=== PATIENT | female | born 1990 | race Caucasian/White ===

== ENCOUNTER 2018-01-29 22:02 | Emergency (ER) | payer OTHER ==
[2018-01-29] MEDS ORDERED: IBUPROFEN 600 MG TAB PO STA (22:20)
[2018-01-29] MEDS ORDERED: ACETAMINOPHEN TAB 325 MG TAB PO STA (22:20)
--- NOTE | 2018-01-29 22:23 | ED ---
Female Urogenital HPI - General Chief complaint: Urogenital Stated complaint: Blood in Urine Time Seen by Provider: 01/29/18 22:11 Source: patient Mode of arrival: ambulatory Limitations: no limitations - History of Present Illness Initial comments: 27-year-old female patient presents to the emergency department today for evaluation of dysuria and hematuria. Patient states that she has had symptoms for the last 2 days. Patient states that today the amount of blood in the urine increased. She denies any fevers or chills. Denies any back pain or abdominal pain. Denies any nausea or vomiting. States that she does take control denies any chance of . Patient denies any recent rash, shortness breath, chest pain, diarrhea, constipation, numbness, tingling, dizziness, weakness, headache, visual changes, or any other complaints. - Related Data Home Medications Medication Instructions Recorded Confirmed Cetirizine HCl [Zyrtec] 10 mg PO DAILY 07/08/17 01/29/18 Norgestimate-Ethinyl Estradiol 1 tab PO DAILY 07/08/17 01/29/18 [Ortho Tri-Cyclen 28 Tablet] buPROPion HCL [Wellbutrin XL] 300 mg PO DAILY 07/08/17 01/29/18 Omeprazole 40 mg PO DAILY 12/18/17 01/29/18 Phentermine HCl [Adipex-P] 37.5 mg PO QAM 12/18/17 01/29/18 Previous Rx's Medication Instructions Recorded Cephalexin [Keflex] 500 mg PO Q6HR #28 cap 01/29/18 Allergies Allergy/AdvReac Type Severity Reaction Status Date / Time Sulfa (Sulfonamide AdvReac Nausea & Verified 01/29/18 22:27 Antibiotics) Vomiting Review of Systems ROS Statement: Those systems with pertinent positive or pertinent negative responses have been documented in the HPI. ROS Other: All systems not noted in ROS Statement are negative. Past Medical History Past Medical History: Asthma Additional Past Medical History / Comment(s): pancreatitis History of Any Multi-Drug Resistant Organisms: None Reported Past Surgical History: Adenoidectomy, Tonsillectomy Past Psychological History: Anxiety Smoking Status: Never smoker Past Alcohol Use History: Occasional Past Drug Use History: None Reported General Exam Limitations: no limitations General appearance: alert, in no apparent distress, other (This is a well- developed, well-nourished adult female patient in no acute distress. Vital signs upon presentation are temperature 99.7F, pulse 117, respirations 20, blood pressure 138/87, pulse ox 100% on room air.) Eye exam: Present: normal appearance, PERRL, EOMI. Absent: scleral icterus, conjunctival injection, periorbital swelling ENT exam: Present: normal exam, normal oropharynx, mucous membranes moist Respiratory exam: Present: normal lung sounds bilaterally. Absent: respiratory distress, wheezes, rales, rhonchi, stridor Cardiovascular Exam: Present: regular rate, normal rhythm, normal heart sounds. Absent: systolic murmur, diastolic murmur, rubs, gallop, clicks GI/Abdominal exam: Present: soft, normal bowel sounds. Absent: distended, tenderness, guarding, rebound, rigid Back exam: Present: normal inspection. Absent: CVA tenderness (R), CVA tenderness (L) Neurological exam: Present: alert, oriented X3, CN II-XII intact Psychiatric exam: Present: normal affect, normal mood Skin exam: Present: warm, dry, intact, normal color. Absent: rash Course Vital Signs 01/29/18 22:03 Temperature 99.7 F H Pulse Rate 117 H Respiratory 20 Rate Blood Pressure 138/87 O2 Sat by Pulse 100 Oximetry Medical Decision Making - Medical Decision Making 27-year-old female patient presents to the emergency department today for evaluation of dysuria and hematuria 3 days. Physical examination is relatively unremarkable. Patient has no CVA tenderness. She does have slight suprapubic tenderness. Patient does have temperature 99.7 and elevated heart rate. Urinalysis was obtained and shows a cloudy appearance with 1+ protein, large amount of blood, large leukocyte esterase, 84 red blood cells, and 10 white blood cells. Few mucus. HCG is negative. Patient will be treated for hemorrhagic cystitis. We'll give her perception for Keflex. She is instructed to follow-up with her primary care physician for repeat testing once antibiotic to complete [place] clearance of infection. She is instructed to increase fluids. Return parameters discussed in detail. She verbalizes understanding and agrees with this plan. - Lab Data Lab Results 01/29/18 01/29/18 Range/Units 22:30 22:30 Urine Color Yellow Urine Appearance Cloudy H (Clear) Urine pH 7.0 (5.0-8.0) Ur Specific [place] 1.028 (1.001-1.035) Urine Protein 1+ H (Negative) Urine Glucose (UA) Negative (Negative) Urine Ketones Negative (Negative) Urine Blood Large H (Negative) Urine Nitrite Negative (Negative) Urine Bilirubin Negative (Negative) Urine Urobilinogen 2.0 (<2.0) mg/dL Ur Leukocyte Esterase Large H (Negative) Urine RBC 84 H (0-5) /hpf Urine WBC 10 H (0-5) /hpf Ur Squamous Epith Cells 4 (0-4) /hpf Urine Mucus Few H (None) /hpf Urine HCG, Qual Not Detected (Not Detectd) Disposition Clinical Impression: Hemorrhagic cystitis Disposition: HOME SELF-CARE Condition: Good Instructions: Urinary Tract Infection in Women (ED) Additional Instructions: Take medications as directed. Follow up with her primary care physician for recheck in 1-2 days. Return here immediately for any new, worsening, or concerning symptoms. Prescriptions: Cephalexin [Keflex] 500 mg PO Q6HR #28 cap Is patient prescribed a controlled substance at d/c from ED?: No Referrals: Emiliana Winters MD [Primary Care Provider] - 1-2 days Time of Disposition: 23:05
[2018-01-29 22:50] LABS: Appearance,Urine Cloudy (Clear); Bilirubin,Urine Negative (Negative); Blood,Urine Large (Negative); Color,Urine Yellow; Glucose,Urine (UA) Negative (Negative); Ketones,Urine Negative (Negative); Leukocyte Esterase,Urine Large (Negative); Mucus,Urine Few /hpf; Nitrite,Urine Negative (Negative); Protein,Urine 1+ (Negative); RBC,Urine 84 /hpf (0-5); Specific Gravity,Urine 1.028 (1.001-1.035); Squamous Epithelial Cell,Urine 4 /hpf (0-4); WBC,Urine 10 /hpf (0-5)
[2018-01-29] MEDS ORDERED: CEPHALEXIN 500MG STARTER PACK 4 CAP BTL PO STA ×2 (23:08→23:29)
[2018-01-29 23:36] VITALS: BP 133/80; PULSE 97; RESP 16; TEMP 98.8
== END 2018-01-29 23:36 | disposition home or self-care (01) ==
LOC: EC 22:02
DX: N30.90 Cystitis, unspecified without hematuria (principal); F41.9 Anxiety disorder, unspecified; Z79.3 Long term (current) use of hormonal contraceptives; Z79.899 Other long term (current) drug therapy; Z88.2 Allergy status to sulfonamides
CPT/HCPCS: 81001; 81025; 99283

== ENCOUNTER 2019-05-19 08:57 | Emergency (ER) | payer OTHER ==
[2019-05-19 09:00] VITALS: BP 149/82; PULSE 90; RESP 18; TEMP 98.4
[2019-05-19] MEDS ORDERED: PROPARACAINE 0.5% OPHTH DROPS 15 ML BTL RIGHT EYE STA (09:10)
[2019-05-19] MEDS ORDERED: OFLOXACIN 0.3% OPHTH DROPS 5 ML BOTTLE LEFT EYE STA (09:44)
--- NOTE | 2019-05-19 10:08 | ED ---
Eye Problem HPI - General Chief complaint: Eye Problems Stated complaint: Eye issue Time Seen by Provider: 05/19/19 09:01 Source: patient, RN notes reviewed, old records reviewed Mode of arrival: ambulatory Limitations: no limitations - History of Present Illness Initial comments: Patient is a 28-year-old female presents today with left eye irritation. Patient reports that last night when she is taking her contact out around 10 PM she noticed some injection to the left eye increased pain. Patient states that she wears contacts daily but never sleeps in them. She states that last night she slept, was having pain within her eye was feeling draining. She denies any purulent drainage. She reports that when she arrived to the ER her eye pain is diminishing and is not as injected as it was. Patient states that she does not believe is a foreign body within her eye, but states it is somewhat irritated and painful. Patient states that she has no visual changes. - Related Data Home Medications Medication Instructions Recorded Confirmed Cetirizine HCl [Zyrtec] 10 mg PO DAILY 07/08/17 05/19/19 Norgestimate-Ethinyl Estradiol 1 tab PO DAILY 07/08/17 05/19/19 [Ortho Tri-Cyclen 28 Tablet] buPROPion HCL [Wellbutrin XL] 300 mg PO DAILY 07/08/17 05/19/19 Omeprazole 40 mg PO DAILY 12/18/17 05/19/19 Previous Rx's Medication Instructions Recorded Ofloxacin 0.3% Ophth Soln [Ocuflox 1 - 2 drops LEFT EYE QID #1 bottle 05/19/19 Ophth Soln] Allergies Allergy/AdvReac Type Severity Reaction Status Date / Time Sulfa (Sulfonamide AdvReac Nausea & Verified 05/19/19 09:19 Antibiotics) Vomiting Review of Systems ROS Statement: Those systems with pertinent positive or pertinent negative responses have been documented in the HPI. ROS Other: All systems not noted in ROS Statement are negative. Past Medical History Past Medical History: Asthma Additional Past Medical History / Comment(s): pancreatitis History of Any Multi-Drug Resistant Organisms: None Reported Past Surgical History: Adenoidectomy, Tonsillectomy Past Psychological History: Anxiety Smoking Status: Never smoker Past Alcohol Use History: Occasional Past Drug Use History: None Reported General Exam - General Exam Comments Initial Comments: Pleasant 28-year-old female. No significant distress. Limitations: no limitations General appearance: alert, in no apparent distress Head exam: Present: atraumatic, normocephalic, normal inspection Eye exam: Present: PERRL, conjunctival injection (Left eye conjunctival injection. 4 scene eye exam was performed no signs of ulceration or abrasion. Sure of the left eye was 9 and right eye was 12.) ENT exam: Present: normal exam, mucous membranes moist Neck exam: Present: normal inspection. Absent: tenderness, meningismus, lymphadenopathy Respiratory exam: Present: normal lung sounds bilaterally. Absent: respiratory distress, wheezes, rales, rhonchi, stridor Cardiovascular Exam: Present: regular rate, normal rhythm, normal heart sounds. Absent: systolic murmur, diastolic murmur, rubs, gallop, clicks GI/Abdominal exam: Present: soft, normal bowel sounds. Absent: distended, tenderness, guarding, rebound, rigid Extremities exam: Present: normal inspection, full ROM, normal capillary refill. Absent: tenderness, pedal edema, joint swelling, calf tenderness Back exam: Present: normal inspection Neurological exam: Present: alert, oriented X3, CN II-XII intact Psychiatric exam: Present: normal affect, normal mood Skin exam: Present: warm, dry, intact, normal color. Absent: rash Course Vital Signs 05/19/19 08:58 Temperature 98.4 F Pulse Rate 90 Respiratory 18 Rate Blood Pressure 149/82 O2 Sat by Pulse 100 Oximetry Medical Decision Making - Medical Decision Making At this time patient's the transitional female presents emergency room today with left eye irritation. Sugar contact her yesterday complaining of redness and pain since that time. Patient 4 scene eye exam performed no signs of ulceration or significant abrasion. She states that the eye is less painful since she woke up. Discussed with a history of contact use and conjunctival injection we will treat the Patient for concern for possibility of early infection. I discussed if the redness was worsening or increased pain despite not do medications using Visine drops Patient should return to the ER follow-up with ophthalmology. Discussed discontinuing contacts until her eye is treated. All questions answered return parameters were discussed. Disposition Clinical Impression: Conjunctivitis, left eye Disposition: HOME SELF-CARE Condition: Good Instructions (If sedation given, give patient instructions): Conjunctivitis (ED) Additional Instructions: Please use medication as discussed., Using the eye drop every 4 hours within the eye. Also using Visine drops and did not wear contacts. Please follow up with opthalomology if symptoms have not improved over the next two days. Please return to the emergency room if your symptoms increase or worsen or for any other concerns. Prescriptions: Ofloxacin 0.3% Ophth Soln [Ocuflox Ophth Soln] 1 - 2 drops LEFT EYE QID #1 bottle Is patient prescribed a controlled substance at d/c from ED?: No Referrals: Emiliana Winters MD [Primary Care Provider] - 1-2 days Rajinder Lindsay MD [STAFF PHYSICIAN] - 1-2 days Time of Disposition: 10:06
== END 2019-05-19 10:17 | disposition home or self-care (01) ==
LOC: EC 08:57
DX: H10.9 Unspecified conjunctivitis (principal); F41.9 Anxiety disorder, unspecified; Z79.3 Long term (current) use of hormonal contraceptives; Z79.899 Other long term (current) drug therapy; Z88.2 Allergy status to sulfonamides
CPT/HCPCS: 99283

== ENCOUNTER 2021-08-09 20:17 | Emergency (ER) | payer OTHER ==
--- NOTE | 2021-08-09 22:30 | XR ---
EXAMINATION TYPE: XR chest 2V DATE OF EXAM: 08/09/2021 COMPARISON: 12/18/2017 HISTORY: Chest pain TECHNIQUE: FINDINGS: Heart and mediastinum are normal. Lungs are clear. Diaphragm is normal. Bony thorax appears normal. IMPRESSION: Normal chest. No change.
--- NOTE | 2021-08-10 00:35 | ED ---
General Adult HPI - General Chief complaint: Shortness of Breath Stated complaint: Chills,Exposed to COVID Time Seen by Provider: 08/09/21 22:23 Source: patient, RN notes reviewed Mode of arrival: ambulatory Limitations: no limitations - History of Present Illness Initial comments: Patient is a 30-year-old female presenting to the emergency Department with complaints of tingling over her body that started a couple hours before arrival. Patient also expressed concerns for recent cold exposure and wants to covert tested. Patient states she has been feeling some nasal congestion, took two Mucinex today and then shortly later took some NyQuil. Patient states shortly after that started feeling weird sensations all over her body, felt fatigued. Patient states it's was a weird feeling just came in for evaluation. She has no fevers or chills, no falls or trauma. She denies any chest pains or short of breath, no abdominal pain, nausea or vomiting. Patient has no further complaints. Her vitals are stable upon arrival. - Related Data Home Medications Medication Instructions Recorded Confirmed Cetirizine HCl [Zyrtec] 10 mg PO DAILY 07/08/17 08/09/21 buPROPion HCL [Wellbutrin XL] 300 mg PO DAILY 07/08/17 08/09/21 Norgestimate-Ethinyl Estradiol 1 tab PO DAILY 08/09/21 08/09/21 [Tri-Estarylla Tablet] Omeprazole 20 mg PO BID 08/09/21 08/09/21 Allergies Allergy/AdvReac Type Severity Reaction Status Date / Time Sulfa (Sulfonamide AdvReac Nausea & Verified 08/09/21 23:25 Antibiotics) Vomiting Review of Systems ROS Statement: Those systems with pertinent positive or pertinent negative responses have been documented in the HPI. ROS Other: All systems not noted in ROS Statement are negative. Past Medical History Past Medical History: Asthma Additional Past Medical History / Comment(s): pancreatitis History of Any Multi-Drug Resistant Organisms: None Reported Past Surgical History: Adenoidectomy, Tonsillectomy Past Psychological History: Anxiety Smoking Status: Never smoker Past Alcohol Use History: Occasional Past Drug Use History: None Reported General Exam - General Exam Comments Initial Comments: GENERAL: Patient is well-developed and well-nourished. Patient is nontoxic and in no acute distress. HEAD: Atraumatic, normocephalic. EYES: Pupils equal round and reactive to light, extraocular movements intact, sclera anicteric, conjunctiva are normal. Eyelids were unremarkable. ENT: TMs normal, nares patent, oropharynx clear without exudates. Moist mucous membranes. NECK: Normal range of motion, supple without lymphadenopathy or JVD. LUNGS: Unlabored respirations. Breath sounds clear to auscultation bilaterally and eq ual. No wheezes rales or rhonchi. HEART: Regular rate and rhythm without murmurs, rubs or gallops. ABDOMEN: Soft, nontender, normoactive bowel sounds. No guarding, no rebound. No masses appreciated. MUSCULOSKELETAL: Normal extremities with adequate strength and normal range of motion, no pitting or edema. No clubbing or cyanosis. NEUROLOGICAL: Patient is alert and oriented x 3. SKIN: Warm, Dry, normal turgor, no rashes or lesions noted. Limitations: no limitations Course Vital Signs 08/09/21 21:04 Temperature 98.5 F Pulse Rate 86 Respiratory 22 Rate Blood Pressure 138/88 O2 Sat by Pulse 99 Oximetry EKG Findings - EKG Comments: EKG Findings:: Normal sinus rhythm, normal ECG, no signs of acute ST segment elevation. Ventricular rate 91, WI interval 144, QT 376. Medical Decision Making - Medical Decision Making Patient is a 30-year-old female here with complaints of a weird tingling sensation after taking some medications for nasal congestion. Patient had recent covid exposure. Rapid Covid test is positive today. I did offer monoclonal antibodies, patient refused. Chest x-ray showed no acute abnormality. I discussed with patient that her sensation most likely related to the NyQuil. Patient is stable for discharge. She'll follow up with her primary care. She is agreeable to this plan of care and she is stable for discharge. - Lab Data Lab Results 08/09/21 Range/Units 23:13 Coronavirus (PCR) Detected A (Not Detectd) Disposition Clinical Impression: COVID-19 Disposition: HOME SELF-CARE Condition: Stable Instructions (If sedation given, give patient instructions): Coronavirus Disease 2019 (COVID-19) Additional Instructions: Please return to the Emergency Department if symptoms worsen or any other concerns. Follow-up with your primary care as needed. Is patient prescribed a controlled substance at d/c from ED?: No Referrals: Emiliana Winters MD [Primary Care Provider] - 1-2 days Time of Disposition: 00:34
[2021-08-10] MEDS ORDERED: SOTROVIMAB (EUA) 500 MG in SODIUM CHLORIDE 0.9% 100 ML IVPB ONE (01:15)
[2021-08-10] MEDS ORDERED: SODIUM CHLORIDE 0.9% 50 ML IVPB ONE (01:15)
[2021-08-10 03:48] VITALS: BP 134/91; PULSE 91; RESP 15; TEMP 99.2
== END 2021-08-10 03:43 | disposition home or self-care (01) ==
LOC: EC 20:17
DX: U07.1 COVID-19 (principal); J45.909 Unspecified asthma, uncomplicated; F41.9 Anxiety disorder, unspecified; Z72.89 Other problems related to lifestyle
CPT/HCPCS: 93005; 87635; 71046; 99284; 96360; Q0247; 96361

== ENCOUNTER 2021-08-11 11:36 | Emergency (ER) | payer OTHER ==
[2021-08-11 13:59] VITALS: RESP 16
--- NOTE | 2021-08-11 16:48 | ED ---
Extremity Problem HPI - General Chief complaint: Extremity Problem,Nontraumatic Stated complaint: post infusion, nausea & right side pain Source: patient Mode of arrival: ambulatory Limitations: no limitations - History of Present Illness Initial comments: 30 year-old female patient presents to the emergency department for evaluation of intermittent nausea and right hip pain. States she received the monoclonal antibody infusion two days ago for COVID-19 and started having these symptoms yesterday. States that the nausea has been mild. She is still able to eat and drink. Denies any vomiting. States the pain in her right hip feels "superficial". More uncomfortable when she lays on the hip or tries to change position. She denies any skin color changes. Denies any swelling, numbness, or tingling to the right leg. Denies fever or chills. She was concerned she may have blood clot. - Related Data Home Medications Medication Instructions Recorded Confirmed Cetirizine HCl [Zyrtec] 10 mg PO DAILY 07/08/17 08/09/21 buPROPion HCL [Wellbutrin XL] 300 mg PO DAILY 07/08/17 08/09/21 Norgestimate-Ethinyl Estradiol 1 tab PO DAILY 08/09/21 08/09/21 [Tri-Estarylla Tablet] Omeprazole 20 mg PO BID 08/09/21 08/09/21 Allergies Allergy/AdvReac Type Severity Reaction Status Date / Time Sulfa (Sulfonamide AdvReac Nausea & Verified 08/11/21 13:59 Antibiotics) Vomiting Review of Systems ROS Statement: Those systems with pertinent positive or pertinent negative responses have been documented in the HPI. ROS Other: All systems not noted in ROS Statement are negative. Past Medical History Past Medical History: Asthma Additional Past Medical History / Comment(s): pancreatitis History of Any Multi-Drug Resistant Organisms: None Reported Past Surgical History: Adenoidectomy, Tonsillectomy Past Psychological History: Anxiety Smoking Status: Never smoker Past Alcohol Use History: Occasional Past Drug Use History: None Reported General Exam Limitations: no limitations General appearance: alert, in no apparent distress, other (This is a well- developed, well-nourished adult female in no acute distress) Respiratory exam: Present: normal lung sounds bilaterally. Absent: respiratory distress, wheezes, rales, rhonchi, stridor Cardiovascular Exam: Present: regular rate, normal rhythm, normal heart sounds. Absent: systolic murmur, diastolic murmur, rubs, gallop, clicks GI/Abdominal exam: Present: soft, normal bowel sounds. Absent: distended, tenderness, guarding, rebound, rigid Extremities exam: Present: normal inspection, full ROM, normal capillary refill, other (Skin to the right leg is pink, warm, dry. Cap refill less than 3 seconds. Pedal posttibial pulses 2+.). Absent: tenderness, pedal edema, joint swelling, calf tenderness Neurological exam: Present: alert, oriented X3, CN II-XII intact Psychiatric exam: Present: normal affect, normal mood Skin exam: Present: warm, dry, intact, normal color. Absent: rash Course Vital Signs 08/11/21 13:56 Temperature 98.4 F Pulse Rate 90 Respiratory 16 Rate Blood Pressure 141/92 O2 Sat by Pulse 99 Oximetry Medical Decision Making - Medical Decision Making 30-year-old female patient presents to the emergency department today for evaluation of nausea and right hip pain. Physical examination did reveal soft nontender abdomen. Skin to the right leg is normal. No swelling. Vital signs are within normal range. She was concerned she may have blood clot after receiving monoclonal antibody infusion. Area of pain and physical exam findings do not support this. Did instruct her to apply warm compresses over the area. Continue to monitor the site. If there are any changes she is instructed to return immediately. She is instructed to follow-up with the primary care physician for recheck in 1-2 days. She verbalizes understanding and agrees with this plan. Case discussed with my attending Dr. Vega. Disposition Clinical Impression: Right hip pain, Nausea Disposition: HOME SELF-CARE Condition: Good Instructions (If sedation given, give patient instructions): Acute Nausea and Vomiting (ED), Hip Pain (ED) Additional Instructions: Take Tylenol Motrin for pain control. Follow-up with the primary care physician for recheck in 1-2 days. Return for any new, worsening, or concerning symptoms Is patient prescribed a controlled substance at d/c from ED?: No Referrals: Emiliana Winters MD [Primary Care Provider] - 1-2 days Time of Disposition: 16:48
[2021-08-11 17:16] VITALS: BP 137/95; PULSE 93; TEMP 98.3
== END 2021-08-11 17:16 | disposition home or self-care (01) ==
LOC: EC 11:36
DX: R11.0 Nausea (principal); M25.551 Pain in right hip; J45.909 Unspecified asthma, uncomplicated; F41.9 Anxiety disorder, unspecified; Z88.2 Allergy status to sulfonamides
CPT/HCPCS: 99283

== ENCOUNTER 2021-09-12 15:58 | Emergency (ER) | payer OTHER ==
[2021-09-12 18:26] VITALS: TEMP 98.9
[2021-09-12] MEDS ORDERED: SODIUM CHLORIDE 0.9% 1,000 ML IV ONE (20:45)
--- NOTE | 2021-09-12 21:02 | ED ---
General Adult HPI - General Chief complaint: Recheck/Abnormal Lab/Rx Stated complaint: Strange sensations Time Seen by Provider: 09/12/21 19:58 Source: patient Mode of arrival: ambulatory Limitations: no limitations - History of Present Illness Initial comments: 30-year-old female patient presents to the emergency department today for evaluation of tingling sensation over her body. States she first experienced it when she had COVID in July 2021. States she received monoclonal antibodies abdominal was taking Mucinex, and NyQuil, the symptoms started shortly after. States that it initially started as a "heat wave through her body followed by tingling sensations". States it lasted for 10-20 minutes. States those episodes resolved and she started to get focal areas of tingling over her body at various times. States she did see her primary care physician who said it could have been an infection, did labs, and started her on a multivitamin. She states that more recently she has felt the tingling in her scalp. Last night it started in her head then started to radiate to her whole body. States she was unable to sleep last night due to the symptoms. Patient states she is very anxious about this and is concerned that something is wrong with her. He denies symptoms being assigned to one side of her body. She denies any headaches, blurred vision, double vision, dizziness, or weakness. Denies difficulty with ambulation. Denies starting any new medications. She denies any head injury. Denies any similar symptoms prior to July. - Related Data Home Medications Medication Instructions Recorded Confirmed Cetirizine HCl [Zyrtec] 10 mg PO DAILY 07/08/17 09/12/21 buPROPion HCL [Wellbutrin XL] 300 mg PO DAILY 07/08/17 09/12/21 Norgestimate-Ethinyl Estradiol 1 tab PO DAILY 08/09/21 09/12/21 [Tri-Estarylla Tablet] Omeprazole 20 mg PO BID 08/09/21 09/12/21 Multivitamins, Thera [Multivitamin 1 tab PO DAILY 09/12/21 09/12/21 (formulary)] Allergies Allergy/AdvReac Type Severity Reaction Status Date / Time Sulfa (Sulfonamide AdvReac Nausea & Verified 09/12/21 20:59 Antibiotics) Vomiting Review of Systems ROS Statement: Those systems with pertinent positive or pertinent negative responses have been documented in the HPI. ROS Other: All systems not noted in ROS Statement are negative. Past Medical History Past Medical History: Asthma Additional Past Medical History / Comment(s): pancreatitis History of Any Multi-Drug Resistant Organisms: None Reported Past Surgical History: Adenoidectomy, Tonsillectomy Past Psychological History: Anxiety Smoking Status: Never smoker Past Alcohol Use History: Occasional Past Drug Use History: None Reported General Exam Limitations: no limitations General appearance: alert, in no apparent distress, other (This is a well- developed, well-nourished adult female in no acute distress.) Eye exam: Present: normal appearance, PERRL, EOMI. Absent: scleral icterus, conjunctival injection, periorbital swelling ENT exam: Present: normal exam, normal oropharynx, mucous membranes moist Respiratory exam: Present: normal lung sounds bilaterally. Absent: respiratory distress, wheezes, rales, rhonchi, stridor Cardiovascular Exam: Present: normal rhythm, tachycardia, normal heart sounds. Absent: systolic murmur, diastolic murmur, rubs, gallop, clicks GI/Abdominal exam: Present: soft, normal bowel sounds. Absent: distended, te nderness, guarding, rebound, rigid Neurological exam: Present: alert, oriented X3, CN II-XII intact Psychiatric exam: Present: normal affect, normal mood Skin exam: Present: warm, dry, intact, normal color. Absent: rash Course Vital Signs 09/12/21 09/12/21 09/12/21 18:22 22:08 22:57 Temperature 98.9 F Pulse Rate 105 H 96 100 Respiratory 20 18 18 Rate Blood Pressure 141/86 143/99 151/99 O2 Sat by Pulse 99 100 98 Oximetry Medical Decision Making - Medical Decision Making 30 year-old male patient presents to the emergency department today for evaluation of tingling sensations to various areas over her body. Symptoms have been intermittent since July. Physical examination is unremarkable. She is neurologically intact with no focal deficits. Labs reviewed and were unremarkable. B12 and B6 levels are pending. I did discuss findings and results with her. To be discharged to follow-up the primary care physician for recheck in 1-2 days. Return parameters were discussed in detail. She verbalizes understanding and agrees with this plan. My attending is Dr. Sarkar. - Lab Data Result diagrams: 09/12/21 20:55 09/12/21 20:55 Lab Results 09/12/21 09/12/21 09/12/21 Range/Units 20:55 20:55 20:55 WBC 11.2 H (3.8-10.6) k/uL RBC 4.55 (3.80-5.40) m/uL Hgb 13.2 (11.4-16.0) gm/dL Hct 39.9 (34.0-46.0) % MCV 87.6 (80.0-100.0) fL MCH 29.0 (25.0-35.0) pg MCHC 33.1 (31.0-37.0) g/dL RDW 12.6 (11.5-15.5) % Plt Count 289 (150-450) k/uL MPV 8.2 Neutrophils % 68 % Lymphocytes % 24 % Monocytes % 5 % Eosinophils % 1 % Basophils % 0 % Neutrophils # 7.7 (1.3-7.7) k/uL Lymphocytes # 2.7 (1.0-4.8) k/uL Monocytes # 0.6 (0-1.0) k/uL Eosinophils # 0.2 (0-0.7) k/uL Basophils # 0.0 (0-0.2) k/uL Sodium (137-145) mmol/L Potassium (3.5-5.1) mmol/L Chloride (98-107) mmol/L Carbon Dioxide (22-30) mmol/L Anion Gap mmol/L BUN (7-17) mg/dL Creatinine (0.52-1.04) mg/dL Est GFR (CKD-EPI)AfAm (>60 ml/min/1.73 sqM) Est GFR (CKD-EPI)NonAf (>60 ml/min/1.73 sqM) Glucose (74-99) mg/dL Calcium (8.4-10.2) mg/dL Total Bilirubin (0.2-1.3) mg/dL AST (14-36) U/L ALT (4-34) U/L Alkaline Phosphatase (38-126) U/L Total Protein (6.3-8.2) g/dL Albumin (3.5-5.0) g/dL TSH (0.465-4.680) mIU/L Urine Color Yellow Urine Appearance Cloudy H (Clear) Urine pH 6.0 (5.0-8.0) Ur Specific [place] 1.024 (1.001-1.035) Urine Protein Trace H (Negative) Urine Glucose (UA) Negative (Negative) Urine Ketones Negative (Negative) Urine Blood Large H (Negative) Urine Nitrite Negative (Negative) Urine Bilirubin Negative (Negative) Urine Urobilinogen 2.0 (<2.0) mg/dL Ur Leukocyte Esterase Trace H (Negative) Urine RBC 11 H (0-5) /hpf Urine WBC 7 H (0-5) /hpf Ur Squamous Epith Cells 9 H (0-4) /hpf Urine Bacteria Rare H (None) /hpf Urine Mucus Many H (None) /hpf Urine HCG, Qual Not Detected (Not Detectd) 09/12/21 Range/Units 20:55 WBC (3.8-10.6) k/uL RBC (3.80-5.40) m/uL Hgb (11.4-16.0) gm/dL Hct (34.0-46.0) % MCV (80.0-100.0) fL MCH (25.0-35.0) pg MCHC (31.0-37.0) g/dL RDW (11.5-15.5) % Plt Count (150-450) k/uL MPV Neutrophils % % Lymphocytes % % Monocytes % % Eosinophils % % Basophils % % Neutrophils # (1.3-7.7) k/uL Lymphocytes # (1.0-4.8) k/uL Monocytes # (0-1.0) k/uL Eosinophils # (0-0.7) k/uL Basophils # (0-0.2) k/uL Sodium 138 (137-145) mmol/L Potassium 4.0 (3.5-5.1) mmol/L Chloride 103 (98-107) mmol/L Carbon Dioxide 23 (22-30) mmol/L Anion Gap 12 mmol/L BUN 8 (7-17) mg/dL Creatinine 0.85 (0.52-1.04) mg/dL Est GFR (CKD-EPI)AfAm >90 (>60 ml/min/1.73 sqM) Est GFR (CKD-EPI)NonAf >90 (>60 ml/min/1.73 sqM) Glucose 90 (74-99) mg/dL Calcium 9.8 (8.4-10.2) mg/dL Total Bilirubin 0.4 (0.2-1.3) mg/dL AST 22 (14-36) U/L ALT 15 (4-34) U/L Alkaline Phosphatase 87 (38-126) U/L Total Protein 8.2 (6.3-8.2) g/dL Albumin 4.6 (3.5-5.0) g/dL TSH 3.450 (0.465-4.680) mIU/L Urine Color Urine Appearance (Clear) Urine pH (5.0-8.0) Ur Specific [place] (1.001-1.035) Urine Protein (Negative) Urine Glucose (UA) (Negative) Urine Ketones (Negative) Urine Blood (Negative) Urine Nitrite (Negative) Urine Bilirubin (Negative) Urine Urobilinogen (<2.0) mg/dL Ur Leukocyte Esterase (Negative) Urine RBC (0-5) /hpf Urine WBC (0-5) /hpf Ur Squamous Epith Cells (0-4) /hpf Urine Bacteria (None) /hpf Urine Mucus (None) /hpf Urine HCG, Qual (Not Detectd) Disposition Clinical Impression: Paresthesia Disposition: HOME SELF-CARE Condition: Good Instructions (If sedation given, give patient instructions): Paresthesia (ED) Additional Instructions: Follow-up with your primary care physician for recheck in 1-2 days. Follow-up with neurology as soon as possible. Return for any new, worsening, or concerning symptoms Is patient prescribed a controlled substance at d/c from ED?: No Referrals: Emiliana Winters MD [Primary Care Provider] - 1-2 days Aki Roblero MD [REFERRING] - 1-2 days Time of Disposition: 22:38
[2021-09-12 21:19] LABS: Basophils % (A) 0 %; Eosinophils # (A) 0.2 k/uL (0-0.7); Eosinophils % (A) 1 %; HCT 39.9 % (34.0-46.0); HGB 13.2 gm/dL (11.4-16.0); Lymphocytes # (A) 2.7 k/uL (1.0-4.8); Lymphocytes % (A) 24 %; MCHC 33.1 g/dL (31.0-37.0); MCV 87.6 fL (80.0-100.0); Mean Platelet Volume 8.2; Monocytes # (A) 0.6 k/uL (0-1.0); Monocytes % (A) 5 %; Neutrophils # (A) 7.7 k/uL (1.3-7.7); Neutrophils % (A) 68 %; Platelet Count 289 k/uL (150-450); RBC 4.55 m/uL (3.80-5.40); RDW 12.6 % (11.5-15.5); WBC 11.2 k/uL (3.8-10.6)
[2021-09-12 21:24] LABS: Appearance,Urine Cloudy (Clear); Bacteria,Urine Rare /hpf; Bilirubin,Urine Negative (Negative); Blood,Urine Large (Negative); Color,Urine Yellow; Glucose,Urine (UA) Negative (Negative); Ketones,Urine Negative (Negative); Leukocyte Esterase,Urine Trace (Negative); Mucus,Urine Many /hpf; Nitrite,Urine Negative (Negative); Protein,Urine Trace (Negative); RBC,Urine 11 /hpf (0-5); Specific Gravity,Urine 1.024 (1.001-1.035); Squamous Epithelial Cell,Urine 9 /hpf (0-4); WBC,Urine 7 /hpf (0-5)
[2021-09-12 21:28] LABS: ALT 15 U/L (4-34); AST 22 U/L (14-36); African American GFR (CKD) >90 (>60 ml/min/1.73 sqM); Albumin 4.6 g/dL (3.5-5.0); Alkaline Phosphatase 87 U/L (38-126); Anion Gap 12 mmol/L; Blood Urea Nitrogen 8 mg/dL (7-17); Calcium 9.8 mg/dL (8.4-10.2); Carbon Dioxide 23 mmol/L (22-30); Chloride 103 mmol/L (98-107); Glucose 90 mg/dL (74-99); Non-African American GFR(CKD) >90 (>60 ml/min/1.73 sqM); Sodium 138 mmol/L (137-145); Total Bilirubin 0.4 mg/dL (0.2-1.3); Total Protein 8.2 g/dL (6.3-8.2)
[2021-09-12 22:10] VITALS: RESP 18
[2021-09-12 22:58] VITALS: BP 151/99; PULSE 100
== END 2021-09-12 22:58 | disposition home or self-care (01) ==
LOC: EC 15:58
DX: R20.2 Paresthesia of skin (principal); J45.909 Unspecified asthma, uncomplicated; F41.9 Anxiety disorder, unspecified; Z79.899 Other long term (current) drug therapy
CPT/HCPCS: 36415; 80053; 81001; 81025; 82607; 84207; 84443; 85025; 96360; 99284

== ENCOUNTER → 2023-04-11 | Outpatient (CLI) | payer OTHER ==
--- NOTE | 2023-04-11 13:24 | US ---
EXAMINATION TYPE: US venous doppler duplex LE DATE OF EXAM: 04/11/2023 1:15 PM COMPARISON: NONE CLINICAL INDICATION: Female, 32 years old with history of M79.605 pain in limb; leg pain since January, n o swelling, no h/o dvt SIDE PERFORMED: Bilateral TECHNIQUE: The lower extremity deep venous system is examined utilizing real time linear array sonog ta with graded compression, doppler sonography and color-flow sonography. VESSELS IMAGED: Common Femoral Vein Deep Femoral Vein Greater Saphenous Vein * Femoral Vein Popliteal Vein Small Saphenous Vein * Proximal Calf Veins (* superficial vessels) Grayscale, color doppler, spectral doppler imaging performed of the deep veins of the lower extremiti es. There is normal flow, compressibility, vascular waveforms. Right Leg: Negative for DVT Left Leg: Negative for DVT IMPRESSION: No deep venous thrombosis of the bilateral lower extremities.
== END | disposition home or self-care (01) ==
LOC: RADUSWWP 12:42
PROVIDERS: ATTEND Family Medicine
DX: M79.605 Pain in left leg (principal); M79.604 Pain in right leg
CPT/HCPCS: 93970

== ENCOUNTER 2023-09-11 10:43 | Emergency (ER) | payer OTHER ==
--- NOTE | 2023-09-11 10:47 | ED ---
General Adult HPI - General Source: patient, RN notes reviewed Mode of arrival: ambulatory Limitations: no limitations <Rosalino Kumar - Last Filed: 09/11/23 10:46> <Laura Carl - Last Filed: 09/11/23 12:17> - General Stated complaint: flu/cold symptoms Time Seen by Provider: 09/11/23 10:46 - History of Present Illness Initial comments: 32-year-old female presents emergency Department with chief complaint of fever cough congestion. Patient states felt like she has sinus issues. Patient states her significant other has similar symptoms. (Rosalino Kumar) Patient is a 32-year-old male who is otherwise healthy presents emergency room with complaints of flulike symptoms. Patient has sore throat about 3 days ago which is slightly improved. She complains of a cough, congestion and sinus pressure over the last 3 days. Patient had nausea yesterday but since improved today. She denies any chest pain or hemoptysis. Denies any vomiting or diarrhea. Special. Was 3 weeks ago. Denies chance . Patient's fiance is being seen for similar symptoms. (Laura Carl) - Related Data Home Medications Medication Instructions Recorded Confirmed Cetirizine HCl [Zyrtec] 10 mg PO DAILY 07/08/17 09/12/21 buPROPion HCL [Wellbutrin XL] 300 mg PO DAILY 07/08/17 09/12/21 Omeprazole 20 mg PO BID 08/09/21 09/12/21 norgestimate-ethinyl estradioL 1 tab PO DAILY 08/09/21 09/12/21 [Tri-Estarylla Tablet] Multivitamins, Thera [Multivitamin 1 tab PO DAILY 09/12/21 09/12/21 (formulary)] Allergies Allergy/AdvReac Type Severity Reaction Status Date / Time Sulfa (Sulfonamide AdvReac Nausea & Verified 09/11/23 10:55 Antibiotics) Vomiting Review of Systems ROS Other: All systems not noted in ROS Statement are negative. <Rosalino Kumar - Last Filed: 09/11/23 10:46> ROS Other: All systems not noted in ROS Statement are negative. <Laura Carl - Last Filed: 09/11/23 12:17> ROS Statement: Those systems with pertinent positive or pertinent negative responses have been documented in the HPI. Past Medical History Past Medical History: Asthma Additional Past Medical History / Comment(s): pancreatitis History of Any Multi-Drug Resistant Organisms: None Reported Past Surgical History: Adenoidectomy, Tonsillectomy Past Psychological History: Anxiety Smoking Status: Never smoker Past Alcohol Use History: Occasional Past Drug Use History: None Reported <Rosalino Kumar - Last Filed: 09/11/23 10:46> General Exam <Rosalino Kumar - Last Filed: 09/11/23 10:46> Limitations: no limitations General appearance: alert, in no apparent distress Head exam: Present: atraumatic Eye exam: Present: normal appearance, PERRL ENT exam: Present: normal exam, normal oropharynx, mucous membranes dry, TM's normal bilaterally Neck exam: Present: normal inspection, full ROM, other (No nuchal rigidity) Respiratory exam: Present: normal lung sounds bilaterally, respiratory distress Cardiovascular Exam: Present: regular rate, normal rhythm Neurological exam: Present: alert, oriented X3 Psychiatric exam: Present: normal affect, normal mood Skin exam: Present: warm, intact <Laura Carl - Last Filed: 09/11/23 12:17> - General Exam Comments Initial Comments: Visual Physical Exam Vital signs reviewed General: Well-appearing, nontoxic, no acute distress. Head: Normocephalic, atraumatic Eyes: PERRLA, EOMI ENT: Airway patent Chest: Nonlabored breathing Skin: No visual rash, normal skin tone Neuro: Alert and oriented 3 Musculoskeletal: No gross abnormalities (Rosalino Kumar) Course <Laura Carl - Last Filed: 09/11/23 12:17> Vital Signs 09/11/23 10:54 Temperature 97.4 F L Pulse Rate 108 H Respiratory 18 Rate Blood Pressure 135/75 O2 Sat by Pulse 99 Oximetry - Reevaluation(s) Reevaluation #1: 09/11/23 12:13 Patient's well appearing emergency room. Vital signs are stable and she is nontoxic appearing. She is in no respiratory distress. I discussed lab results with the patient. Patient's significant other is positive for Covid however her swab was negative. I suspect that this was an inaccurate sample, we'll presume positive for cultivated. I did discuss management with antiviral however, we discussed the side effects and patient does not wish to start the ativiral at this time. (Laura Carl) Medical Decision Making <StacyRosalino Murrell - Last Filed: 09/11/23 10:46> <Laura Carl - Last Filed: 09/11/23 12:17> - Medical Decision Making I completed the quick note portion of this chart signed Rosalino Kumar PA-C (Rosalino Kumar) Was pt. sent in by a medical professional or institution ([facility], CORPORATE INTERN, urgent care, hospital, or usp...) When possible be specific @ -[No] Did you speak to anyone other than the patient for history (EMS, parent, family, police, friend...)? What history was obtained from this source @ -[No] Did you review nursing and triage notes (agree or disagree)? Why? @ -[I reviewed and agree with nursing and triage notes] Were old charts reviewed (outside hosp., previous admission, EMS record, old EKG, old radiological studies, urgent care reports/EKG's, usp records)? Report findings @ -[No old charts were reviewed] Differential Diagnosis (chest pain, altered mental status, abdominal pain women, abdominal pain men, vaginal bleeding, weakness, fever, dyspnea, syncope, headache, dizziness, GI bleed, back pain, seizure, CVA, palpatations, mental health, musculoskeletal)? @ -Covid 19, influenza, RSV, upper respiratory infection, sinusitis EKG interpreted by me (3pts min.). @ -[As above] X-rays interpreted by me (1pt min.). @ -[None done] CT interpreted by me (1pt min.). @ -[None done] U/S interpreted by me (1pt. min.). @ -[None done] What testing was considered but not performed or refused? (CT, X-rays, U/S, labs)? Why? @ -[None] What meds were considered but not given or refused? Why? @ -[None] Did you discuss the management of the patient with other professionals (professionals i.e. [facility], CORPORATE INTERN, lab, RT, psych nurse, social media intern, manganese wheeler, teacher, global safety officer, keycase assembler)? Give summary @ -[No] Was smoking cessation discussed for >3mins.? @ -[No] Was critical care preformed (if so, how long)? @ -[No] Were there social determinants of health that impacted care today? How? (Homelessness, low income, unemployed, alcoholism, drug addiction, transportation, low edu. Level, literacy, decrease access to med. care, retirement, rehab)? @ -[No] Was there de-escalation of care discussed even if they declined (Discuss DNR or withdrawal of care, Hospice)? DNR status @ -[No] What co-morbidities impacted this encounter? (DM, HTN, Smoking, COPD, CAD, Cancer, CVA, ARF, Chemo, Hep., AIDS, mental health diagnosis, sleep apnea, morbid obesity)? @ -[None] Was patient admitted / discharged? Hospital course, mention meds given and route, prescriptions, significant lab abnormalities, going to OR and other pertinent info. @ -Patient does not require hospitalization at this time. She is stable and well appearing in the emergency room. Vital signs are stable. She may continue symptomatic treatment for the suspected Covid at home including Motrin Tylenol, fluids and rest.] Undiagnosed new problem with uncertain prognosis? @ -[No] Drug Therapy requiring intensive monitoring for toxicity (Heparin, Nitro, Insulin, Cardizem)? @ -[No] Were any procedures done? @ -[No] Diagnosis/symptom? @ -Suspected COVID-19, URI Acute, or Chronic, or Acute on Chronic? @ -Acute Uncomplicated (without systemic symptoms) or Complicated (systemic symptoms)? @ -[default] Side effects of treatment? @ -[No] Exacerbation, Progression, or Severe Exacerbation? @ -[No] Poses a threat to life or bodily function? How? (Chest pain, USA, PA, pneumonia, PE, COPD, DKA, ARF, appy, cholecystitis, CVA, Diverticulitis, Homicidal, Suicidal, threat to staff... and all critical care pts) @ -[No] (Laura Carl) - Lab Data Lab Results 09/11/23 Range/Units 10:55 Influenza Type A (PCR) Not Detected (Not Detectd) Influenza Type B (PCR) Not Detected (Not Detectd) RSV (PCR) Not Detected (Not Detectd) SARS-CoV-2 (PCR) Not Detected (Not Detectd) Disposition <Rosalino Kumar - Last Filed: 09/11/23 10:46> Is patient prescribed a controlled substance at d/c from ED?: No If prescribed controlled substance>3 days was MAPS reviewed?: No Time of Disposition: 12:17 <Laura Carl - Last Filed: 09/11/23 12:17> Clinical Impression: COVID-19, URI, acute Disposition: HOME SELF-CARE Condition: Good Instructions (If sedation given, give patient instructions): Coronavirus Disease 2019 (COVID-19), Droplet Precautions (ED), COVID-19 (Coronavirus Disease 2019) (ED), How to Recover from COVID-19 at Home (ED) Referrals: Emiliana Winters MD [Primary Care Provider] - 1-2 days
[2023-09-11 11:03] VITALS: RESP 18
[2023-09-11 12:39] VITALS: BP 127/85; PULSE 84; TEMP 98.7
== END 2023-09-11 12:33 | disposition home or self-care (01) ==
LOC: EC 10:43
DX: U07.1 COVID-19 (principal); J06.9 Acute upper respiratory infection, unspecified; J45.909 Unspecified asthma, uncomplicated; F41.9 Anxiety disorder, unspecified; Z79.899 Other long term (current) drug therapy; Z88.2 Allergy status to sulfonamides
CPT/HCPCS: 87636; 99283

== ENCOUNTER → 2023-09-22 | Outpatient (CLI) | payer OTHER ==
--- NOTE | 2023-09-22 13:48 | XR ---
EXAMINATION TYPE: XR ankle complete 3 views RT, XR foot complete 3 views RT DATE OF EXAM: 09/22/2023 COMPARISON: Previous right ankle and foot 07/08/2017 HISTORY: 32-year-old female M2 5.571, right ankle pain, numbness and tingling FINDINGS: Ankle: The ankle mortise is congruent with preservation of the distal tibiofibular overlap. Talar dome is in tact. Small corticated ossific densities below the medial and lateral malleoli with old injury, unchanged f rom 2017. Subtalar joint align. Suboptimal delineation of the Achilles tendon. Foot: Bipartite tibial sesamoid. No acute fracture, subluxation, dislocation. IMPRESSION: 1. Ankle: Small corticated ossific densities below both medial and lateral malleoli, unchanged from 2 017, compatible with sequela of old injuries. No acute osseous abnormality seen. 2. Foot: No acute osseous abnormality seen.
== END | disposition home or self-care (01) ==
LOC: RADXRMAIN 12:40
PROVIDERS: ATTEND Family Medicine
DX: M85.871 Other specified disorders of bone density and structure, right ankle and foot (principal)